=== PATIENT | male | born 1945 | race Hispanic/Latino ===

== ENCOUNTER → 2017-09-05 | Outpatient (CLI) | payer OTHER ==
[~2017-09-05] MED LIST: TYL3 PO
== END | disposition home or self-care (01) ==
LOC: RAH 10:55
PROVIDERS: ATTEND Internal Medicine
DX: M19.012 Primary osteoarthritis, left shoulder (principal); F41.9 Anxiety disorder, unspecified; E66.9 Obesity, unspecified
CPT/HCPCS: 73030; 73060

== ENCOUNTER → 2018-09-25 | Outpatient (CLI) | payer OTHER | END | disposition home or self-care (01) | LOC: RAH 09:46 | PROVIDERS: ATTEND Internal Medicine | DX: M25.78 Osteophyte, vertebrae (principal); M47.812 Spondylosis without myelopathy or radiculopathy, cervical region; M79.621 Pain in right upper arm | CPT/HCPCS: 72040 ==

== ENCOUNTER → 2018-12-25 | Outpatient (CLI) | payer OTHER | END | disposition home or self-care (01) | LOC: RAH 15:40 | PROVIDERS: ATTEND Internal Medicine | DX: Z01.818 Encounter for other preprocedural examination (principal); I70.0 Atherosclerosis of aorta; M51.35 Other intervertebral disc degeneration, thoracolumbar region | CPT/HCPCS: 71046 ==

== ENCOUNTER 2019-01-09 07:56 | Day surgery (SDC) | payer OTHER ==
[2019-01-08 11:00] VITALS: BP 152/46
[~2019-01-09] VITALS: Ht 167.6 cm; Wt 73.7 kg
[2019-01-09] VITALS (16 sets, daily range): BP systolic 128–153; BP diastolic 40–54
[2019-01-09] MEDS: CEFAZOLIN SODIUM 1 GM VIAL IVP SCH ×2 (05:00→11:45)
[~2019-01-09 07:56] MED LIST changes: +LATA7.5D OU; +TRAM50TA4 PO; -TYL3 PO
[2019-01-09] MEDS ORDERED: LACTATED RINGERS 1000ML 1,000 ML IV ONE (09:03)
[2019-01-09] MEDS ORDERED: DEXAMETHASONE SOD PHOSPHATE 10MG/ML 1ML VIAL ONE (11:19)
[2019-01-09] MEDS ORDERED: LIDOCAINE PF 2% 5ML ABBOJECT ONE (11:19)
[2019-01-09] MEDS ORDERED: SUCCINYLCHOLINE 200MG/10ML SYR ONE (11:19)
[2019-01-09] MEDS ORDERED: ROPIVACAINE 0.5% 5MG/ML 30ML IJ ONE (11:19)
[2019-01-09] MEDS ORDERED: ONDANSETRON HCL 4 MG/2 ML VIAL ONE (11:19)
[2019-01-09] MEDS ORDERED: GLYCOPYRROLATE 1 MG/5 ML SYRINGE ONE (11:19)
[2019-01-09] MEDS ORDERED: NEOSTIGMINE 5MG/5ML SYR IV ONE (11:20)
[2019-01-09] MEDS ORDERED: FENTANYL CITRATE PF 50 MCG/1 ML 2ML VIAL ONE (11:20)
[2019-01-09] MEDS ORDERED: MIDAZOLAM HCL 1 MG/ML 2ML VIAL ONE (11:20)
[2019-01-09] MEDS ORDERED: PROPOFOL 10 MG/ML 20ML VIAL IV ONE (11:20)
[2019-01-09] MEDS ORDERED: ROCURONIUM 10MG/1ML SYR 10 MG/ML ML ONE (11:20)
[2019-01-09] MEDS ORDERED: EPHEDRINE SULFATE 50 MG/ML AMPULE ONE (11:52)
--- NOTE | 2019-01-09 14:50 | NUR ---
PT. LEFT VIA WHEELCHAIR IN PVT CAR, D/C INSTRUCTION GIVEN TO , RX SCRIPT GIVEN TO ALSO WITH F/U APPT. NO COMPLICATION UPON D/C.
== END 2019-01-09 14:50 | disposition home or self-care (01) ==
LOC: DAH 07:56
PROVIDERS: ATTEND Orthopaedic Surgery
DX: S46.011A Strain of muscle(s) and tendon(s) of the rotator cuff of right shoulder, initial encounter (principal); X58.XXXA Exposure to other specified factors, initial encounter; Y93.89 Activity, other specified; Y92.89 Other specified places as the place of occurrence of the external cause; Y99.8 Other external cause status; M25.511 Pain in right shoulder; M19.011 Primary osteoarthritis, right shoulder; Z90.49 Acquired absence of other specified parts of digestive tract; Z98.890 Other specified postprocedural states; Z88.0 Allergy status to penicillin; Z88.8 Allergy status to other drugs, medicaments and biological substances; Z79.899 Other long term (current) drug therapy; Z87.891 Personal history of nicotine dependence; Z82.49 Family history of ischemic heart disease and other diseases of the circulatory system; Z83.3 Family history of diabetes mellitus
CPT/HCPCS: 23410; 23430; 64415; 76942; A4215 ×2; A4221; A4222; A4223; A4248; A4450; A4565; A4649 ×4; A4663; A4930; A5120; A6207; A6260; C1713; J0330; J0690; J1100; J2001; J2250; J2405; J2704; J2710; J2795; J3010; J3490 ×2; J7120 ×2

== ENCOUNTER → 2019-11-28 | Outpatient (CLI) | payer BC, OTHER | END | disposition home or self-care (01) | LOC: RAH 13:46 | PROVIDERS: ATTEND Neuromusculoskeletal Medicine & OMM | DX: M19.012 Primary osteoarthritis, left shoulder (principal); M19.011 Primary osteoarthritis, right shoulder | CPT/HCPCS: 73030 ==

== ENCOUNTER → 2020-01-07 | Outpatient (CLI) | payer OTHER | END | disposition home or self-care (01) | LOC: RAH 10:36 | PROVIDERS: ATTEND Internal Medicine | DX: Z01.811 Encounter for preprocedural respiratory examination (principal) | CPT/HCPCS: 71046 ==

== ENCOUNTER → 2020-04-09 | Outpatient (CLI) | payer OTHER | END | disposition home or self-care (01) | LOC: RAH 12:47 | PROVIDERS: ATTEND Internal Medicine | DX: M25.512 Pain in left shoulder (principal) | CPT/HCPCS: 73030 ==

== ENCOUNTER → 2020-05-27 | Outpatient (CLI) | payer OTHER | END | disposition home or self-care (01) | LOC: RAH 15:05 | PROVIDERS: ATTEND Internal Medicine | DX: Z01.818 Encounter for other preprocedural examination (principal); M75.122 Complete rotator cuff tear or rupture of left shoulder, not specified as traumatic | CPT/HCPCS: 71046 ==

== ENCOUNTER → 2020-10-12 | Outpatient (CLI) | payer OTHER | END | disposition home or self-care (01) | LOC: RAH 11:45 | PROVIDERS: ATTEND Internal Medicine | DX: Z01.818 Encounter for other preprocedural examination (principal) | CPT/HCPCS: 71046 ==

== ENCOUNTER → 2022-06-07 | Outpatient (CLI) | payer OTHER | END | disposition home or self-care (01) | LOC: RAH 11:14 | PROVIDERS: ATTEND Orthopaedic Surgery | DX: M75.102 Unspecified rotator cuff tear or rupture of left shoulder, not specified as traumatic (principal); M19.012 Primary osteoarthritis, left shoulder; M25.712 Osteophyte, left shoulder | CPT/HCPCS: 73221 ==

== ENCOUNTER 2022-08-26 00:34 | Observation (INO) | payer OTHER ==
[~2022-08-26] VITALS: Ht 167.6 cm; Wt 76.2 kg
[2022-08-26 02:57] LABS: BASOPHILS % (AUTO) 0.2 % (0.0-5.0); EOSINOPHILS % (AUTO) 4.5 % (0.0-8.0); LYMPHOCYTES % (AUTO) 36.9 % (21.0-51.0); MEAN CORPUSCULAR HEMOGLOBIN 30.9 pg (27.0-33.0); MEAN CORPUSCULAR HGB CONC 33.5 g/dL (32.0-36.0); MEAN CORPUSCULAR VOLUME 92.3 fL (79-99); MONOCYTES % (AUTO) 9.3 % (3.0-13.0); NEUTROPHILS % (AUTO) 48.9 % (40.0-77.0); PLATELET COUNT (AUTO) 147 K/uL (130-400); RED BLOOD CELL COUNT(AUTO) 4.01 MIL/uL (4.50-6.20); RED CELL DISTRIBUTION WIDTH 13.4 % (11.0-15.5); WHITE BLOOD COUNT (AUTO) 6.4 K/uL (4.8-10.8)
[2022-08-26 03:06] LABS: CREATININE 1.2 mg/dL (0.5-1.5); POTASSIUM 3.7 mmol/L (3.5-5.1)
[2022-08-26 03:11] LABS: ALBUMIN 3.9 g/dL (3.5-5.0); TOTAL PROTEIN, SERUM 6.9 g/dL (6.0-8.3)
[2022-08-26 03:29] LABS: B-TYPE NATRIURETIC PEPTIDE 37 pg/mL (0-100)
[2022-08-26] MEDS ORDERED: NITROGLYCERIN 1GM OINT 1 INCH/1GM TD ONE (03:30)
[2022-08-26] MEDS ORDERED: ASPIRIN 325MG TAB PO ONE (03:30)
[2022-08-26] MEDS ORDERED: ACETAMINOPHEN 325 MG TAB PO PRN ×2 (04:00)
[2022-08-26] MEDS ORDERED: LISINOPRIL 10 MG TABLET PO ONE (04:00)
[2022-08-26] MEDS: NITROGLYCERIN 1GM OINT 1 INCH/1GM TD SCH ×3 (04:00→20:33)
[2022-08-26] MEDS ORDERED: MORPHINE 4 MG SYG IV PRN (04:00)
[2022-08-26] MEDS ORDERED: MORPHINE 2 MG SYG IV PRN (04:00)
[2022-08-26] MEDS ORDERED: ONDANSETRON 4MG INJ IV PRN (04:00)
[2022-08-26 04:32] LABS: INR 0.97 (0.85-1.15); PROTHROMBIN TIME 10.6 SEC (9.6-11.6)
[2022-08-26 04:34] LABS: PARTIAL THROMBOPLASTIN TIME 29.6 SEC (26.3-35.5)
[2022-08-26] MEDS: HEPARIN 5,000 UNIT VIAL SQ SCH ×3 (06:04→20:32)
[2022-08-26 06:20] LABS: APPEARANCE,URINE CLEAR (CLEAR); BILIRUBIN,URINE NEGATIVE (NEGATIVE); COLOR,URINE LIGHT-YELLOW (YELLOW); GLUCOSE, URINE (UA) NEGATIVE (NEGATIVE); KETONES,URINE NEGATIVE (NEGATIVE); LEUKOCYTE ESTERASE ,URINE NEGATIVE Leu/uL (NEGATIVE); NITRATE,URINE NEGATIVE (NEGATIVE); OCCULT BLOOD,URINE NEGATIVE (NEGATIVE); PH,URINE 5.5 (5.0-8.0); PROTEIN,URINE 30 mg/dL (NEGATIVE); UROBILINOGEN,URINE 0.2 mg/dL (0.2-1.0)
[2022-08-26] MEDS: FAMOTIDINE 20MG TAB PO SCH (08:49)
[2022-08-26] MEDS: ASPIRIN 81MG CHEW TAB PO SCH (08:49)
[2022-08-26] MEDS ORDERED: LISINOPRIL 10 MG TABLET PO SCH (09:00)
[2022-08-26] MEDS: AMLODIPINE 5 MG TAB PO SCH (09:31)
[2022-08-26] MEDS: LISINOPRIL 10 MG TABLET PO SCH (09:31)
[2022-08-26] MEDS: CLOPIDOGREL 75MG TAB PO SCH (09:32)
[2022-08-26 18:40] VITALS: BP 129/39
[2022-08-26] MEDS: ATORVASTATIN 40 MG TABLET PO SCH (20:33)
[2022-08-27] VITALS: BP 125/43
[2022-08-27] MEDS: NITROGLYCERIN 1GM OINT 1 INCH/1GM TD SCH (03:40)
[2022-08-27] MEDS: HEPARIN 5,000 UNIT VIAL SQ SCH (03:45)
[2022-08-27 03:59] VITALS: BP 127/43
[2022-08-27 04:33] LABS: BASOPHILS % (AUTO) 0.2 % (0.0-5.0); EOSINOPHILS % (AUTO) 5.3 % (0.0-8.0); HEMATOCRIT 35.4 % (42-54); LYMPHOCYTES % (AUTO) 32.8 % (21.0-51.0); MEAN CORPUSCULAR HEMOGLOBIN 31.3 pg (27.0-33.0); MEAN CORPUSCULAR HGB CONC 34.2 g/dL (32.0-36.0); MEAN CORPUSCULAR VOLUME 91.7 fL (79-99); MONOCYTES % (AUTO) 7.7 % (3.0-13.0); NEUTROPHILS % (AUTO) 53.1 % (40.0-77.0); PLATELET COUNT (AUTO) 144 K/uL (130-400); RED BLOOD CELL COUNT(AUTO) 3.86 MIL/uL (4.50-6.20); RED CELL DISTRIBUTION WIDTH 13.4 % (11.0-15.5); WHITE BLOOD COUNT (AUTO) 5.3 K/uL (4.8-10.8)
[2022-08-27 04:56] LABS: MAGNESIUM 1.9 mg/dL (1.80-2.40); PHOSPHORUS 3.8 mg/dL (2.5-4.9); POTASSIUM 3.8 mmol/L (3.5-5.1)
[2022-08-27 07:30] VITALS: BP 136/43
[2022-08-27] MEDS: FAMOTIDINE 20MG TAB PO SCH (09:17)
[2022-08-27] MEDS: AMLODIPINE 5 MG TAB PO SCH (09:17)
[2022-08-27] MEDS: ASPIRIN 81MG CHEW TAB PO SCH (09:18)
[2022-08-27] MEDS: CLOPIDOGREL 75MG TAB PO SCH (09:19)
[2022-08-27] MEDS: LISINOPRIL 10 MG TABLET PO SCH (09:19)
[2022-08-27] MEDS ORDERED: ASPI-1005 PO (11:29)
[2022-08-27] MEDS ORDERED: AMLO5TAB4 PO (11:29)
[2022-08-27] MEDS ORDERED: LISI10TA24 PO (11:29)
[2022-08-27] MEDS ORDERED: CLOP-31 PO (11:29)
[2022-08-27] MEDS ORDERED: ATOR40TA69 PO (11:29)
[2022-08-27 11:30] VITALS: BP 124/55
== END 2022-08-27 13:25 | disposition home or self-care (01) ==
LOC: EDH 00:34 → EDHIP 03:47 → INTOOBSV 03:47 → 4BH 18:48
PROVIDERS: ADMIT Internal Medicine; ATTEND Internal Medicine
DX: I10 Essential (primary) hypertension (principal); Z20.822 Contact with and (suspected) exposure to COVID-19; H53.8 Other visual disturbances; E78.00 Pure hypercholesterolemia, unspecified; I21.A1 Myocardial infarction type 2; E78.5 Hyperlipidemia, unspecified; Z79.82 Long term (current) use of aspirin; Z87.442 Personal history of urinary calculi; Z51.5 Encounter for palliative care; Z79.899 Other long term (current) drug therapy
CPT/HCPCS: 96372 ×2; 99285; 84484 ×4; 80053; 83880; 85025 ×2; 85610; 85730; 87804 ×2; 81003; 36415 ×2; 87635; 71045; 70450; 93005 ×2; 83735; 84100; 80048; J1644 ×4; G0378 ×2

== ENCOUNTER → 2022-09-27 | Outpatient (CLI) | payer OTHER ==
[~2022-09-27] MED LIST changes: +AMLO5TAB4 PO; +ASPI-1005 PO; +ATOR40TA69 PO; +CLOP-31 PO; +LISI10TA24 PO
== END | disposition home or self-care (01) ==
LOC: RAH 09:27
PROVIDERS: ATTEND Internal Medicine
DX: I70.0 Atherosclerosis of aorta (principal); M47.815 Spondylosis without myelopathy or radiculopathy, thoracolumbar region; R05.9 Cough, unspecified
CPT/HCPCS: 71046

== ENCOUNTER 2022-10-05 15:17 | Inpatient (IN) | payer OTHER ==
[~2022-10-05] VITALS: Ht 167.6 cm; Wt 73.8 kg
[2022-10-05 15:48] LABS: BASOPHILS % (AUTO) 0.2 % (0.0-5.0); EOSINOPHILS % (AUTO) 4.3 % (0.0-8.0); HEMATOCRIT 33.5 % (42-54); LYMPHOCYTES % (AUTO) 31.7 % (21.0-51.0); MEAN CORPUSCULAR HGB CONC 33.7 g/dL (32.0-36.0); NEUTROPHILS % (AUTO) 56.6 % (40.0-77.0); PLATELET COUNT (AUTO) 154 K/uL (130-400); RED BLOOD CELL COUNT(AUTO) 3.64 MIL/uL (4.50-6.20); RED CELL DISTRIBUTION WIDTH 13.3 % (11.0-15.5); WHITE BLOOD COUNT (AUTO) 5.6 K/uL (4.8-10.8)
[2022-10-05 15:58] LABS: CREATININE 1.1 mg/dL (0.5-1.5); POTASSIUM 3.9 mmol/L (3.5-5.1)
[2022-10-05 16:09] LABS: ALBUMIN 3.6 g/dL (3.5-5.0); TOTAL PROTEIN, SERUM 6.4 g/dL (6.0-8.3)
[2022-10-05] MEDS ORDERED: ASPIRIN 325MG TAB PO ONE (17:30)
[2022-10-05] MEDS ORDERED: NITROGLYCERIN 1GM OINT 1 INCH/1GM TD ONE (17:30)
[2022-10-05] MEDS ORDERED: CLOPIDOGREL 300MG TAB PO ONE (17:30)
[2022-10-05] MEDS ORDERED: ENOXAPARIN SODIUM 80 MG/0.8 ML SQ ONE (17:30)
[2022-10-05] MEDS ORDERED: ONDANSETRON 4MG INJ IV PRN (18:30)
[2022-10-05] MEDS: NITROGLYCERIN 1GM OINT 1 INCH/1GM TD SCH (18:30)
[2022-10-05] MEDS ORDERED: MORPHINE 4 MG SYG IV PRN (18:30)
[2022-10-05] MEDS ORDERED: ACETAMINOPHEN 325 MG TAB PO PRN ×2 (18:30)
[2022-10-05] MEDS ORDERED: MORPHINE 2 MG SYG IV PRN (18:30)
[2022-10-05] MEDS: LACTATED RINGERS 1000ML 1,000 ML IV SCH ×2 (18:50→23:16)
[2022-10-05 19:12] LABS: APPEARANCE,URINE CLEAR (CLEAR); BILIRUBIN,URINE NEGATIVE (NEGATIVE); COLOR,URINE LIGHT-YELLOW (YELLOW); GLUCOSE, URINE (UA) NEGATIVE (NEGATIVE); KETONES,URINE NEGATIVE (NEGATIVE); LEUKOCYTE ESTERASE ,URINE NEGATIVE Leu/uL (NEGATIVE); NITRATE,URINE NEGATIVE (NEGATIVE); OCCULT BLOOD,URINE NEGATIVE (NEGATIVE); PH,URINE 5.5 (5.0-8.0); PROTEIN,URINE NEGATIVE (NEGATIVE); UROBILINOGEN,URINE 0.2 mg/dL (0.2-1.0)
[2022-10-05 19:13] LABS: MUCUS,URINE RARE LPF (None Seen); SQUAMOUS EPITHELIAL CELL,UR RARE /HPF (0-2)
[2022-10-05 23:30] VITALS: BP 142/53
[2022-10-05] MEDS ORDERED: FAMO20TA8 PO (23:59)
[2022-10-05] MEDS ORDERED: LORA5SOL62 PO (23:59)
[2022-10-05] MEDS ORDERED: TAMS-1 PO (23:59)
[2022-10-06] MEDS: NITROGLYCERIN 1GM OINT 1 INCH/1GM TD SCH (02:51)
[2022-10-06 03:43] LABS: BASOPHILS % (AUTO) 0.2 % (0.0-5.0); EOSINOPHILS % (AUTO) 5.3 % (0.0-8.0); HEMATOCRIT 31.1 % (42-54); LYMPHOCYTES % (AUTO) 34.3 % (21.0-51.0); MEAN CORPUSCULAR HEMOGLOBIN 31.2 pg (27.0-33.0); MEAN CORPUSCULAR HGB CONC 33.4 g/dL (32.0-36.0); MEAN CORPUSCULAR VOLUME 93.4 fL (79-99); MONOCYTES % (AUTO) 7.7 % (3.0-13.0); NEUTROPHILS % (AUTO) 52.3 % (40.0-77.0); PLATELET COUNT (AUTO) 133 K/uL (130-400); RED BLOOD CELL COUNT(AUTO) 3.33 MIL/uL (4.50-6.20); RED CELL DISTRIBUTION WIDTH 13.3 % (11.0-15.5)
[2022-10-06 04:00] VITALS: BP 132/45
[2022-10-06 04:25] LABS: CREATININE 0.9 mg/dL (0.5-1.5); MAGNESIUM 1.8 mg/dL (1.80-2.40); PHOSPHORUS 3.2 mg/dL (2.5-4.9); POTASSIUM 3.5 mmol/L (3.5-5.1)
[2022-10-06 08:30] VITALS: BP 146/47
[2022-10-06] MEDS ORDERED: [UNRECOGNIZED DRUG - REMARK] PO SCH (09:00)
[2022-10-06] MEDS ORDERED: AMLODIPINE 5 MG TAB PO SCH (09:00)
[2022-10-06] MEDS ORDERED: LISINOPRIL 10 MG TABLET PO SCH (09:00)
[2022-10-06] MEDS ORDERED: FAMOTIDINE 20MG VIAL IV ONE (10:00)
[2022-10-06] MEDS: CLOPIDOGREL 75MG TAB PO SCH (10:06)
[2022-10-06] MEDS: ASPIRIN 81MG CHEW TAB PO SCH (10:06)
[2022-10-06] MEDS: FAMOTIDINE 20MG VIAL IV SCH (10:07)
[2022-10-06] MEDS: ENOXAPARIN SODIUM 40 MG/0.4 ML SYRINGE SQ SCH (10:07)
[2022-10-06] MEDS: LORATADINE 10 MG TABLET PO SCH (10:09)
[2022-10-06 12:44] VITALS: BP 142/40
[2022-10-06 16:52] VITALS: BP 131/49
[2022-10-06 20:00] VITALS: BP 176/53
[2022-10-06] MEDS: TAMSULOSIN HCL 0.4 MG CAP.ER.24H PO SCH (20:12)
[2022-10-06] MEDS: ATORVASTATIN 40 MG TABLET PO SCH (20:12)
[2022-10-06] MEDS ORDERED: AMLODIPINE 5 MG TAB ONE (21:46)
[2022-10-07] VITALS (7 sets, daily range): BP systolic 125–154; BP diastolic 37–58
[2022-10-07 03:44] LABS: HEMATOCRIT 31.9 % (42-54); MEAN CORPUSCULAR HEMOGLOBIN 30.9 pg (27.0-33.0); MEAN CORPUSCULAR HGB CONC 33.9 g/dL (32.0-36.0); MEAN CORPUSCULAR VOLUME 91.4 fL (79-99); RED BLOOD CELL COUNT(AUTO) 3.49 MIL/uL (4.50-6.20); RED CELL DISTRIBUTION WIDTH 13.2 % (11.0-15.5); WHITE BLOOD COUNT (AUTO) 4.9 K/uL (4.8-10.8)
[2022-10-07 03:53] LABS: ALBUMIN 3.1 g/dL (3.5-5.0); MAGNESIUM 1.9 mg/dL (1.80-2.40); POTASSIUM 3.9 mmol/L (3.5-5.1); TOTAL PROTEIN, SERUM 5.8 g/dL (6.0-8.3)
[2022-10-07] MEDS ORDERED: REGADENOSON 0.4 MG/5 ML PF SYG IVP SCH (07:00)
[2022-10-07] MEDS ORDERED: AMLODIPINE 5 MG TAB PO SCH (09:00)
[2022-10-07] MEDS: LACTATED RINGERS 1000ML 1,000 ML IV SCH (09:42)
[2022-10-07] MEDS: AMLODIPINE 5 MG TAB PO SCH (10:00)
[2022-10-07] MEDS: LISINOPRIL 10 MG TABLET PO SCH (10:01)
[2022-10-07] MEDS: LORATADINE 10 MG TABLET PO SCH (10:01)
[2022-10-07] MEDS: CLOPIDOGREL 75MG TAB PO SCH (10:02)
[2022-10-07] MEDS: ASPIRIN 81MG CHEW TAB PO SCH (10:02)
[2022-10-07] MEDS: FAMOTIDINE 20MG VIAL IV SCH (10:02)
[2022-10-07] MEDS: ENOXAPARIN SODIUM 40 MG/0.4 ML SYRINGE SQ SCH (10:03)
[2022-10-07] MEDS: ATORVASTATIN 40 MG TABLET PO SCH (20:11)
[2022-10-07] MEDS: TAMSULOSIN HCL 0.4 MG CAP.ER.24H PO SCH (20:11)
[2022-10-08 00:30] VITALS: BP 161/51
[2022-10-08 03:49] LABS: ALBUMIN 3.2 g/dL (3.5-5.0); CREATININE 0.9 mg/dL (0.5-1.5); POTASSIUM 3.7 mmol/L (3.5-5.1); TOTAL PROTEIN, SERUM 5.9 g/dL (6.0-8.3)
[2022-10-08 04:00] VITALS: BP 143/48
[2022-10-08 08:12] VITALS: BP 136/46
[2022-10-08] MEDS: ASPIRIN 81MG CHEW TAB PO SCH (08:28)
[2022-10-08] MEDS: FAMOTIDINE 20MG VIAL IV SCH (08:28)
[2022-10-08] MEDS: LORATADINE 10 MG TABLET PO SCH (08:28)
[2022-10-08] MEDS: AMLODIPINE 5 MG TAB PO SCH (08:29)
[2022-10-08] MEDS: LISINOPRIL 10 MG TABLET PO SCH (08:29)
[2022-10-08] MEDS: CLOPIDOGREL 75MG TAB PO SCH (08:29)
[2022-10-08] MEDS: ENOXAPARIN SODIUM 40 MG/0.4 ML SYRINGE SQ SCH (08:30)
[2022-10-08] MEDS ORDERED: AMLODIPINE 5 MG TAB PO ONE (09:30)
[2022-10-08] MEDS ORDERED: IOHEXOL 350 MG/ML 100ML INFUS..BTL IV ONE (10:28)
[2022-10-08 12:00] VITALS: BP 136/43
[2022-10-08 16:39] VITALS: BP 130/45
[2022-10-09] MEDS ORDERED: AMLODIPINE 5 MG TAB PO SCH (09:00)
== END 2022-10-08 17:49 | disposition home or self-care (01) | DRG 281 ==
LOC: EDH 15:17 → EDHIP 18:05 → 2DH 22:49
PROVIDERS: ADMIT Internal Medicine; ATTEND Internal Medicine
DX: I21.4 Non-ST elevation (NSTEMI) myocardial infarction (principal); I50.30 Unspecified diastolic (congestive) heart failure; E78.00 Pure hypercholesterolemia, unspecified; I11.0 Hypertensive heart disease with heart failure; I25.2 Old myocardial infarction; Z79.02 Long term (current) use of antithrombotics/antiplatelets; Z79.82 Long term (current) use of aspirin; Z79.899 Other long term (current) drug therapy; Z80.6 Family history of leukemia; Z82.49 Family history of ischemic heart disease and other diseases of the circulatory system; Z83.3 Family history of diabetes mellitus; Z87.442 Personal history of urinary calculi; Z98.1 Arthrodesis status
CPT/HCPCS: 36415; 71045; 71270; 78452; 80048; 80053; 81001; 83735; 83880; 84100; 84484; 85025; 85027; 85378; 86850; 86900; 86901; 93005; 93017; 93306; 93356; 94010; 96374; A9500; G0378; J1650; J2785; J3490; J7120; Q9967

== ENCOUNTER → 2022-10-31 | Outpatient (CLI) | payer OTHER ==
[~2022-10-31] MED LIST changes: +FAMO20TA8 PO; +LORA5SOL62 PO; +TAMS-1 PO
== END | disposition home or self-care (01) ==
LOC: RAH 14:49
PROVIDERS: ATTEND Internal Medicine
DX: M47.812 Spondylosis without myelopathy or radiculopathy, cervical region (principal); M47.814 Spondylosis without myelopathy or radiculopathy, thoracic region; M85.88 Other specified disorders of bone density and structure, other site; Z98.890 Other specified postprocedural states
CPT/HCPCS: 72040; 72070

== ENCOUNTER → 2022-11-29 | Outpatient (CLI) | payer OTHER | END | disposition home or self-care (01) | LOC: SHCH 08:47 | PROVIDERS: ATTEND Internal Medicine | DX: I15.8 Other secondary hypertension (principal) | CPT/HCPCS: 93975 ==

== ENCOUNTER → 2023-03-07 | Outpatient (CLI) | payer OTHER ==
[~2023-03-07] MED LIST changes: +AEC81 PO; -ASPI-1005 PO; -ATOR40TA69 PO; -CLOP-31 PO; -FAMO20TA8 PO; +GARLIQUE PO; -LATA7.5D OU; -LISI10TA24 PO; +LORA10TA7 PO; -LORA5SOL62 PO; +LOSA25TA41 PO; +PANT40TA54 PO; +SAW1CAPS7 PO; +SUCR1TAB PO; -TAMS-1 PO; -TRAM50TA4 PO
== END | disposition home or self-care (01) ==
LOC: RAH 09:59
PROVIDERS: ATTEND Internal Medicine Gastroenterology
DX: R13.10 Dysphagia, unspecified (principal); R10.9 Unspecified abdominal pain
CPT/HCPCS: 74240

== ENCOUNTER → 2023-03-22 | Outpatient (CLI) | payer OTHER | END | disposition home or self-care (01) | LOC: RAH 09:30 | PROVIDERS: ATTEND Internal Medicine Gastroenterology | DX: R13.10 Dysphagia, unspecified (principal); R63.30 Feeding difficulties, unspecified | CPT/HCPCS: 74230; 92611 ==

== ENCOUNTER → 2023-12-18 | Outpatient (CLI) | payer OTHER | END | disposition home or self-care (01) | LOC: RAH 09:29 | PROVIDERS: ATTEND Internal Medicine | DX: R05.9 Cough, unspecified (principal); I70.0 Atherosclerosis of aorta; M47.815 Spondylosis without myelopathy or radiculopathy, thoracolumbar region | CPT/HCPCS: 71046 ==